=== PATIENT | male | born 1980 | race Caucasian/White ===

== ENCOUNTER 2018-05-12 14:59 | Emergency (ER) | payer OTHER, BC ==
[~2018-05-12] VITALS: Ht 149.9 cm; Wt 98.6 kg
[~2018-05-12 14:59] MED LIST: DITROPAN5 MG PO; EPIPEN ADU0.3 MG/0.3 IM; IMIPRAMINE HCL50 MG PO; METFORMIN HCL500 MG PO; NITROFURANTOIN100 MG PO; PREVACID 24HR15 MG PO; TENORMIN25 MG PO; VITAMIN D; ZYRTEC10 M3 PO
[2018-05-12 16:06] LABS: HEMATOCRIT 45.6 % (38.0-50.0); HEMOGLOBIN 14.7 G/DL (12.5-16.6); MCH 26.7 PG (29.0-34.0); MCHC 32.2 G/DL (30.0-36.0); MCV 82.8 FL (86-99); PLATELET COUNT 243 K/uL (156-360); RBC DIS.WIDTH-CV 15.1 % (11.8-14.6); RBC DIS.WIDTH-SD 45.6 % (39-53); RED BLOOD COUNT 5.51 M/uL (4.00-5.50); WHITE BLOOD COUNT 9.5 K/uL (4.1-10.2)
[2018-05-12 16:15] LABS: CHLORIDE 102 mEq/L (99-109); POTASSIUM 5.4 mEq/L (3.7-5.4); SODIUM 137 mEq/L (136-147)
[2018-05-12 16:16] LABS: GLUCOSE 126 mg/dL (70-99)
[2018-05-12 16:20] LABS: CREATININE 1.1 mg/dL (0.6-1.3); GFR ESTIMATE (CALCULATED) > 59 mL/min/ (58.99-99999)
[2018-05-12 16:21] LABS: UREA NITROGEN (BUN) 23 mg/dL (9-23)
[2018-05-12 16:28] LABS: TROP-I INTERPRETATION NEGATIVE; TROPONIN-I < 0.01 ng/mL (0.0-0.30)
[2018-05-12 18:40] VITALS: BP 172/94
== END 2018-05-12 18:42 | disposition home or self-care (01) ==
LOC: EME 14:59
PROVIDERS: Nurse Practitioner Family
DX: S20.219A Contusion of unspecified front wall of thorax, initial encounter (principal); V49.50XA Passenger injured in collision with unspecified motor vehicles in traffic accident, initial encounter; Y92.410 Unspecified street and highway as the place of occurrence of the external cause; E11.9 Type 2 diabetes mellitus without complications; Z79.84 Long term (current) use of oral hypoglycemic drugs; I10 Essential (primary) hypertension; G82.20 Paraplegia, unspecified; Z98.2 Presence of cerebrospinal fluid drainage device; G47.30 Sleep apnea, unspecified; Z91.040 Latex allergy status
CPT/HCPCS: 71046; 80048; 84484; 85027; 93005; 99281; 99284